=== PATIENT | male | born 1945 | race Caucasian/White ===

== ENCOUNTER 2021-09-17 08:24 | Emergency (ER) | payer MEDICARE, OTHER ==
[2021-09-17 09:24] LABS: #Basophils 0.1 thou/uL (0.0-0.2); #Eosinphils 0.1 thou/uL (0.0-0.7); #Lymphocytes 0.7 thou/uL (1.20-3.40); #Monocytes 1.4 thou/uL (0.11-0.59); #Neutrophils 7.7 thou/uL (1.40-6.50); %Basophils 1.1 % (0.0-1.0); %Lymphocytes 6.6 % (21.0-51.0); %Monocytes 13.7 % (0.0-10.0); %Neutrophils 77.6 % (42.0-75.0); Hemoglobin 11.9 g/dL (14.0-18.0); Mean Corpuscular HGB CONC 33.8 g/dL (32.0-36.0); Mean Corpuscular Hemoglobin 30.8 pg (27.0-31.0); Mean Corpuscular Volume 91.1 fL (78.0-98.0); Mean Platelet Volume 6.7 fL (7.4-10.4); Platelet Count 398 thou/uL (130-400); RBC Distribution Width 13.9 % (11.5-14.5); Red Blood Cell (RBC) Count 3.88 mill/uL (4.70-6.10)
[2021-09-17] MEDS ORDERED: Fentanyl 100 MCG/2 ML VIAL ONE (09:37)
[2021-09-17 09:43] LABS: ALT (SGPT) 10 U/L (8-55); AST (SGOT) 12 U/L (5-34); Albumin 3.2 g/dL (3.4-4.8); Alkaline Phosphatase 69 U/L (40-110); Anion Gap 15 mmol/L (10-20); BUN (Urea Nitrogen) 12 mg/dL (8.4-25.7); Bilirubin, Total 0.9 mg/dL (0.2-1.2); Calc. Creatinine Clearance 0 mL/min (70-130); Calcium 9.6 mg/dL (7.8-10.44); Carbon Dioxide 30 mmol/L (23-31); Chloride 90 mmol/L (98-107); Globulin 2.8 g/dL (2.4-3.5); Glucose 190 mg/dL (83-110); Sodium 130 mmol/L (136-145)
[2021-09-17 10:00] LABS: SARS-CoV-2 NAA Rapid Test Not Detected (NotDetected)
== END 2021-09-17 11:15 | disposition short-term general hospital (02) ==
LOC: BURERS 08:24
DX: S72.142A Displaced intertrochanteric fracture of left femur, initial encounter for closed fracture (principal); I25.2 Old myocardial infarction; I48.91 Unspecified atrial fibrillation; E11.9 Type 2 diabetes mellitus without complications; E78.5 Hyperlipidemia, unspecified; W18.30XA Fall on same level, unspecified, initial encounter; Z20.822 Contact with and (suspected) exposure to COVID-19
CPT/HCPCS: 72170; 80053; 85025; 96374; J3010; U0002

== ENCOUNTER 2021-10-31 11:44 | Outpatient (CLI) | payer MEDICARE | END 2021-10-31 11:45 | disposition home or self-care (01) | LOC: BURRAD 11:44 | PROVIDERS: ATTEND Registered Nurse Community Health | DX: R10.2 Pelvic and perineal pain (principal); Z91.81 History of falling | CPT/HCPCS: 72170 ==

== ENCOUNTER 2021-11-02 02:36 | Inpatient (IN) | payer MEDICARE ==
[2021-11-02] MEDS ORDERED: Dextrose 50% Abboject 50 ML SYRINGE ONE (03:12)
[2021-11-02 03:31] LABS: Hemoglobin 11.5 g/dL (14.0-18.0); Mean Corpuscular Hemoglobin 31.6 pg (27.0-31.0); Mean Corpuscular Volume 95.8 fL (78.0-98.0); Mean Platelet Volume 6.7 fL (7.4-10.4); Platelet Count 470 thou/uL (130-400); RBC Distribution Width 14.9 % (11.5-14.5); Red Blood Cell (RBC) Count 3.65 mill/uL (4.70-6.10); White Blood Cell (WBC) Count 17.4 thou/uL (4.8-10.8)
[2021-11-02 03:32] LABS: ALT (SGPT) 7 U/L (8-55); AST (SGOT) 10 U/L (5-34); Albumin 3.1 g/dL (3.4-4.8); Alkaline Phosphatase 74 U/L (40-110); Anion Gap 14 mmol/L (10-20); BUN (Urea Nitrogen) 12 mg/dL (8.4-25.7); Bilirubin, Total 0.5 mg/dL (0.2-1.2); Calc. Creatinine Clearance 0 mL/min (70-130); Calcium 9.3 mg/dL (7.8-10.44); Carbon Dioxide 34 mmol/L (23-31); Chloride 87 mmol/L (98-107); Globulin 2.7 g/dL (2.4-3.5); Potassium 4.7 mmol/L (3.5-5.1); Protein, Total 5.8 g/dL (5.8-8.1); Sodium 130 mmol/L (136-145)
[2021-11-02 03:58] LABS: Glucose 39 mg/dL (83-110)
[2021-11-02] MEDS ORDERED: Cefepime 2 GM VIAL ONE (08:28)
[2021-11-02 17:38] LABS: Bilirubin Negative (Negative); Blood, Urine Negative (Negative); Clarity Clear (Clear); Glucose, Urine (Dipstick) Negative (Negative); Ketone, Urine Negative (Negative); Leukocyte Negative (Negative); Nitrite Negative (Negative); Protein, Urine (Dipstick) Negative (Neg-Trace); Urobilinogen 0.2 mg/dL (Less than 2)
[2021-11-02] MEDS ORDERED: Milk Of Magnesia 30 ML UDCUP PO PRN (20:25)
[2021-11-02] MEDS ORDERED: GUAIFENESIN SF SOLN 200 MG/10 ML UDCUP PO PRN (20:25)
[2021-11-02] MEDS ORDERED: Acetaminophen 500 MG TAB PO PRN (20:25)
[2021-11-02] MEDS ORDERED: Benzonatate 100 MG CAP PO PRN (20:25)
[2021-11-02] MEDS ORDERED: traMADol HCl 50 MG TAB PO PRN (20:25)
[2021-11-02] MEDS ORDERED: Dextrose 50% Abboject 50 ML SYRINGE SLOW IVP PRN (20:29)
[2021-11-02] MEDS ORDERED: Dextrose 5% in Water 1,000 ML IV PRN (20:29)
[2021-11-02 20:52] LABS: SARS-CoV-2 PCR by NAA Not Detected (NotDetected)
[2021-11-02] MEDS: busPIRone HCl 5 MG TAB PO SCH (21:40)
[2021-11-02] MEDS: Propranolol HCl 20 MG TAB PO SCH (21:40)
[2021-11-02] MEDS: Magnesium Oxide 400 MG TAB PO SCH (21:40)
[2021-11-02] MEDS: Ezetimibe 10 MG TAB PO SCH (21:40)
[2021-11-02] MEDS: Senokot S 8.6-50 MG TAB PO SCH (21:40)
[2021-11-02] MEDS: ALPRAZolam 0.5 MG TAB PO SCH (21:41)
[2021-11-02] MEDS: Sotalol HCl 80 MG TAB PO SCH (21:43)
[2021-11-02] MEDS: Atorvastatin Calcium 10 MG TAB PO SCH (21:43)
[2021-11-02] MEDS: Apixaban 5 MG TAB PO SCH (21:45)
[2021-11-02] MEDS: Cefepime 1 GM in Sodium Chloride 0.9% 100 ML IVPB SCH (21:48)
[2021-11-02 22:17] VITALS: BMI 19.2
[2021-11-02] MEDS: Vancomycin HCl 1 GM in Sodium Chloride 0.9% 250 ML 250 ML IVPB SCH (23:06)
[2021-11-02] MEDS: CAPTOPRIL 50 MG TAB PO SCH (23:07)
[2021-11-02] MEDS: Amlodipine 5 MG TAB PO SCH ×2 (23:42→23:45)
[2021-11-03 06:15] LABS: ALT (SGPT) 8 U/L (8-55); AST (SGOT) 12 U/L (5-34); Albumin 2.9 g/dL (3.4-4.8); Alkaline Phosphatase 71 U/L (40-110); Anion Gap 11 mmol/L (10-20); BUN (Urea Nitrogen) 7 mg/dL (8.4-25.7); Bilirubin, Total 0.7 mg/dL (0.2-1.2); Calc. Creatinine Clearance 82 mL/min (70-130); Calcium 8.8 mg/dL (7.8-10.44); Carbon Dioxide 33 mmol/L (23-31); Chloride 89 mmol/L (98-107); Globulin 2.5 g/dL (2.4-3.5); Glucose 112 mg/dL (83-110); Potassium 4.6 mmol/L (3.5-5.1); Protein, Total 5.4 g/dL (5.8-8.1); Sodium 128 mmol/L (136-145)
[2021-11-03 06:23] LABS: Hemoglobin 11.7 g/dL (14.0-18.0); Mean Corpuscular HGB CONC 32.8 g/dL (32.0-36.0); Mean Corpuscular Hemoglobin 31.2 pg (27.0-31.0); Mean Corpuscular Volume 95.2 fL (78.0-98.0); Mean Platelet Volume 6.5 fL (7.4-10.4); Platelet Count 421 thou/uL (130-400); RBC Distribution Width 14.6 % (11.5-14.5); Red Blood Cell (RBC) Count 3.77 mill/uL (4.70-6.10); White Blood Cell (WBC) Count 8.5 thou/uL (4.8-10.8)
[2021-11-03] MEDS ORDERED: Mometasone 100 MCG/PUFF (1 INHALER) INH SCH (07:00)
[2021-11-03 07:20] LABS: Elliptocytes SLIGHT = 2-5 cells (100X) (0-1/hpf); Lymphocytes 6 % (21-51); MDiff Complete? YES; Monocytes 16 % (0-10); Neutrophil 78 % (42-75); Platelet Morphology Comment Appears Increased; Poikilocytosis SLIGHT = 6-15 cells (100X) (0-5/hpf); Schistocytes SLIGHT = 2-5 cells (100X) (0-1/hpf)
[2021-11-03] MEDS: ALPRAZolam 0.5 MG TAB PO SCH ×4 (08:33→20:21)
[2021-11-03] MEDS: Cefepime 1 GM in Sodium Chloride 0.9% 100 ML IVPB SCH ×2 (08:33→20:22)
[2021-11-03] MEDS: predniSONE 5 MG TAB PO SCH (08:34)
[2021-11-03] MEDS: Amlodipine 5 MG TAB PO SCH ×2 (08:34→20:19)
[2021-11-03] MEDS: Propranolol HCl 20 MG TAB PO SCH ×2 (08:34→20:18)
[2021-11-03] MEDS: Clopidogrel Bisulfate 75 MG TAB PO SCH (08:34)
[2021-11-03] MEDS: Apixaban 5 MG TAB PO SCH ×2 (08:34→20:20)
[2021-11-03] MEDS: Docusate 100 MG CAP PO SCH (08:34)
[2021-11-03] MEDS: Magnesium Oxide 400 MG TAB PO SCH ×2 (08:35→20:21)
[2021-11-03] MEDS: Senokot S 8.6-50 MG TAB PO SCH ×2 (08:35→20:19)
[2021-11-03] MEDS: Sotalol HCl 80 MG TAB PO SCH ×2 (08:35→20:20)
[2021-11-03] MEDS: busPIRone HCl 5 MG TAB PO SCH ×3 (08:35→20:18)
[2021-11-03] MEDS: Lantus 1000 UNITS/10 ML VIAL SC SCH (08:36)
[2021-11-03] MEDS: CAPTOPRIL 50 MG TAB PO SCH (08:37)
[2021-11-03] MEDS ORDERED: UMECLIDIN INH SCH (09:00)
[2021-11-03] MEDS ORDERED: VILANTER INH SCH (09:00)
[2021-11-03] MEDS ORDERED: Insulin Glargine 20 UNITS in Pre-Filled Syringe 1 EACH SC SCH (09:00)
[2021-11-03] MEDS ORDERED: FLUTICASONE INH SCH (09:00)
[2021-11-03] MEDS ORDERED: Lisinopril 5 MG TAB PO SCH (10:00)
[2021-11-03] MEDS: Vancomycin HCl 1 GM in Sodium Chloride 0.9% 250 ML 250 ML IVPB SCH ×2 (11:00→23:12)
[2021-11-03] MEDS: Lisinopril 5 MG TAB PO SCH (20:19)
[2021-11-03] MEDS: Ezetimibe 10 MG TAB PO SCH (20:20)
[2021-11-03] MEDS: Atorvastatin Calcium 10 MG TAB PO SCH (20:21)
[2021-11-03] MEDS: Mometasone 100 MCG/PUFF (1 INHALER) INH SCH (20:28)
[2021-11-03 21:53] LABS: Vancomycin, Trough 13.3 ug/mL
[2021-11-04 06:23] LABS: Hemoglobin 10.5 g/dL (14.0-18.0); Mean Corpuscular HGB CONC 33.2 g/dL (32.0-36.0); Mean Corpuscular Hemoglobin 31.7 pg (27.0-31.0); Mean Corpuscular Volume 95.5 fL (78.0-98.0); Mean Platelet Volume 6.8 fL (7.4-10.4); Platelet Count 397 thou/uL (130-400); RBC Distribution Width 14.9 % (11.5-14.5); Red Blood Cell (RBC) Count 3.31 mill/uL (4.70-6.10); White Blood Cell (WBC) Count 7.9 thou/uL (4.8-10.8)
[2021-11-04 06:32] LABS: ALT (SGPT) 8 U/L (8-55); AST (SGOT) 11 U/L (5-34); Albumin 2.7 g/dL (3.4-4.8); Alkaline Phosphatase 67 U/L (40-110); Anion Gap 11 mmol/L (10-20); BUN (Urea Nitrogen) 8 mg/dL (8.4-25.7); Bilirubin, Total 0.4 mg/dL (0.2-1.2); Calc. Creatinine Clearance 84 mL/min (70-130); Calcium 8.6 mg/dL (7.8-10.44); Carbon Dioxide 34 mmol/L (23-31); Chloride 91 mmol/L (98-107); Globulin 2.4 g/dL (2.4-3.5); Glucose 105 mg/dL (83-110); Potassium 4.5 mmol/L (3.5-5.1); Protein, Total 5.1 g/dL (5.8-8.1); Sodium 131 mmol/L (136-145)
[2021-11-04 07:01] LABS: Band 1 % (5-11); Lymphocytes 7 % (21-51); MDiff Complete? YES; Monocytes 22 % (0-10); Neutrophil 69 % (42-75)
[2021-11-04] MEDS: Propranolol HCl 20 MG TAB PO SCH ×2 (08:08→20:52)
[2021-11-04] MEDS: ALPRAZolam 0.5 MG TAB PO SCH ×4 (08:08→20:52)
[2021-11-04] MEDS: busPIRone HCl 5 MG TAB PO SCH ×3 (08:09→20:53)
[2021-11-04] MEDS: Lisinopril 5 MG TAB PO SCH ×2 (08:10→20:54)
[2021-11-04] MEDS: Sotalol HCl 80 MG TAB PO SCH ×2 (08:10→20:54)
[2021-11-04] MEDS: Clopidogrel Bisulfate 75 MG TAB PO SCH (08:10)
[2021-11-04] MEDS: Docusate 100 MG CAP PO SCH (08:10)
[2021-11-04] MEDS: predniSONE 5 MG TAB PO SCH (08:10)
[2021-11-04] MEDS: Apixaban 5 MG TAB PO SCH ×2 (08:10→20:54)
[2021-11-04] MEDS: Lantus 1000 UNITS/10 ML VIAL SC SCH (08:11)
[2021-11-04] MEDS: Amlodipine 5 MG TAB PO SCH ×2 (08:11→20:54)
[2021-11-04] MEDS: Senokot S 8.6-50 MG TAB PO SCH ×2 (08:11→20:52)
[2021-11-04] MEDS: Magnesium Oxide 400 MG TAB PO SCH ×2 (08:11→20:52)
[2021-11-04] MEDS: Cefepime 1 GM in Sodium Chloride 0.9% 100 ML IVPB SCH ×2 (08:15→20:50)
[2021-11-04] MEDS: Mometasone 100 MCG/PUFF (1 INHALER) INH SCH ×2 (08:29→22:06)
[2021-11-04] MEDS: Vancomycin HCl 1 GM in Sodium Chloride 0.9% 250 ML 250 ML IVPB SCH ×2 (11:22→22:06)
[2021-11-04] MEDS: Ezetimibe 10 MG TAB PO SCH (20:53)
[2021-11-04] MEDS: Atorvastatin Calcium 10 MG TAB PO SCH (20:53)
[2021-11-05] MEDS: Lantus 1000 UNITS/10 ML VIAL SC SCH (08:21)
[2021-11-05] MEDS: busPIRone HCl 5 MG TAB PO SCH ×3 (08:22→20:19)
[2021-11-05] MEDS: predniSONE 5 MG TAB PO SCH (08:23)
[2021-11-05] MEDS: Amlodipine 5 MG TAB PO SCH ×2 (08:24→20:20)
[2021-11-05] MEDS: Apixaban 5 MG TAB PO SCH ×2 (08:24→20:20)
[2021-11-05] MEDS: Docusate 100 MG CAP PO SCH (08:24)
[2021-11-05] MEDS: Senokot S 8.6-50 MG TAB PO SCH ×2 (08:24→20:19)
[2021-11-05] MEDS: Propranolol HCl 20 MG TAB PO SCH ×2 (08:24→20:19)
[2021-11-05] MEDS: Magnesium Oxide 400 MG TAB PO SCH ×2 (08:25→20:19)
[2021-11-05] MEDS: Sotalol HCl 80 MG TAB PO SCH ×2 (08:25→20:21)
[2021-11-05] MEDS: ALPRAZolam 0.5 MG TAB PO SCH ×4 (08:25→20:18)
[2021-11-05] MEDS: Lisinopril 5 MG TAB PO SCH ×2 (08:26→20:20)
[2021-11-05] MEDS: Cefepime 1 GM in Sodium Chloride 0.9% 100 ML IVPB SCH ×2 (08:29→20:17)
[2021-11-05] MEDS: Clopidogrel Bisulfate 75 MG TAB PO SCH (08:30)
[2021-11-05 09:13] LABS: Vancomycin, Trough 17.1 ug/mL
[2021-11-05] MEDS: Vancomycin HCl 1 GM in Sodium Chloride 0.9% 250 ML 250 ML IVPB SCH ×2 (10:30→21:11)
[2021-11-05] MEDS: Mometasone 100 MCG/PUFF (1 INHALER) INH SCH ×2 (10:31→20:21)
[2021-11-05] MEDS: Ezetimibe 10 MG TAB PO SCH (20:19)
[2021-11-05] MEDS: Atorvastatin Calcium 10 MG TAB PO SCH (20:19)
[2021-11-06 05:35] LABS: Hemoglobin 10.6 g/dL (14.0-18.0); Platelet Count 410 thou/uL (130-400)
[2021-11-06 05:37] LABS: Calc. Creatinine Clearance 85 mL/min (70-130)
[2021-11-06] MEDS: Mometasone 100 MCG/PUFF (1 INHALER) INH SCH (09:43)
[2021-11-06] MEDS: Amlodipine 5 MG TAB PO SCH (09:44)
[2021-11-06] MEDS: Magnesium Oxide 400 MG TAB PO SCH (09:44)
[2021-11-06] MEDS: Senokot S 8.6-50 MG TAB PO SCH (09:44)
[2021-11-06] MEDS: Clopidogrel Bisulfate 75 MG TAB PO SCH (09:44)
[2021-11-06] MEDS: Propranolol HCl 20 MG TAB PO SCH (09:44)
[2021-11-06] MEDS: busPIRone HCl 5 MG TAB PO SCH ×2 (09:44→15:09)
[2021-11-06] MEDS: Sotalol HCl 80 MG TAB PO SCH (09:45)
[2021-11-06] MEDS: Docusate 100 MG CAP PO SCH (09:45)
[2021-11-06] MEDS: Lisinopril 5 MG TAB PO SCH (09:45)
[2021-11-06] MEDS: Apixaban 5 MG TAB PO SCH (09:46)
[2021-11-06] MEDS: ALPRAZolam 0.5 MG TAB PO SCH ×2 (09:47→13:01)
[2021-11-06] MEDS: predniSONE 5 MG TAB PO SCH (09:48)
[2021-11-06] MEDS: Cefepime 1 GM in Sodium Chloride 0.9% 100 ML IVPB SCH (09:53)
[2021-11-06] MEDS: Lantus 1000 UNITS/10 ML VIAL SC SCH (09:54)
[2021-11-06] MEDS: Vancomycin HCl 1 GM in Sodium Chloride 0.9% 250 ML 250 ML IVPB SCH (11:04)
[2021-11-06 16:51] VITALS: BP 123/62; TEMP 98.2
== END 2021-11-06 16:36 | DRG 178 ==
LOC: BURERS 02:36 → BURMED 19:48
PROVIDERS: ADMIT Family Medicine; ATTEND Family Medicine
DX: J69.0 Pneumonitis due to inhalation of food and vomit (principal); E22.2 Syndrome of inappropriate secretion of antidiuretic hormone; I50.32 Chronic diastolic (congestive) heart failure; Z66 Do not resuscitate; I48.20 Chronic atrial fibrillation, unspecified; G20 Parkinson's disease; I11.0 Hypertensive heart disease with heart failure; J44.9 Chronic obstructive pulmonary disease, unspecified; E11.9 Type 2 diabetes mellitus without complications; Z20.822 Contact with and (suspected) exposure to COVID-19; Z96.641 Presence of right artificial hip joint; E78.5 Hyperlipidemia, unspecified; R13.12 Dysphagia, oropharyngeal phase; M45.9 Ankylosing spondylitis of unspecified sites in spine; Z99.81 Dependence on supplemental oxygen; Z88.0 Allergy status to penicillin; Z87.891 Personal history of nicotine dependence; Z79.4 Long term (current) use of insulin; Z79.02 Long term (current) use of antithrombotics/antiplatelets; Z79.01 Long term (current) use of anticoagulants; Z79.899 Other long term (current) drug therapy
CPT/HCPCS: 36415; 36416; 71045; 80053; 80202; 81003; 82565; 83605; 84484; 85014; 85018; 85025; 85049; 87040; 93005; 94640; J0692; J1815; J3370; J3490; J7050; J7512; J7620; U0003; U0005

== ENCOUNTER 2021-12-10 14:08 | Outpatient (CLI) | payer MEDICARE | END 2021-12-10 14:09 | disposition home or self-care (01) | LOC: BURRAD 14:08 | PROVIDERS: ATTEND Family Medicine | DX: R06.2 Wheezing (principal); J18.9 Pneumonia, unspecified organism; J90 Pleural effusion, not elsewhere classified; R91.8 Other nonspecific abnormal finding of lung field | CPT/HCPCS: 71046 ==

== ENCOUNTER 2021-12-14 18:11 | Emergency (ER) | payer MEDICARE ==
[2021-12-14 18:55] LABS: Hemoglobin 11.7 g/dL (14.0-18.0); Mean Corpuscular HGB CONC 33.2 g/dL (32.0-36.0); Mean Corpuscular Volume 96.6 fL (78.0-98.0); Mean Platelet Volume 6.6 fL (7.4-10.4); Platelet Count 401 thou/uL (130-400); RBC Distribution Width 13.6 % (11.5-14.5); Red Blood Cell (RBC) Count 3.67 mill/uL (4.70-6.10); White Blood Cell (WBC) Count 12.6 thou/uL (4.8-10.8)
[2021-12-14 19:09] LABS: ALT (SGPT) 13 U/L (8-55); AST (SGOT) 13 U/L (5-34); Albumin 2.9 g/dL (3.4-4.8); Alkaline Phosphatase 67 U/L (40-110); Anion Gap 13 mmol/L (10-20); BUN (Urea Nitrogen) 21 mg/dL (8.4-25.7); Bilirubin, Total 0.3 mg/dL (0.2-1.2); Calc. Creatinine Clearance 0 mL/min (70-130); Calcium 8.7 mg/dL (7.8-10.44); Carbon Dioxide 34 mmol/L (23-31); Chloride 91 mmol/L (98-107); Globulin 2.8 g/dL (2.4-3.5); Glucose 143 mg/dL (83-110); Potassium 4.1 mmol/L (3.5-5.1); Protein, Total 5.7 g/dL (5.8-8.1); Sodium 134 mmol/L (136-145)
[2021-12-14 19:13] LABS: Lymphocytes 2 % (21-51); MDiff Complete? YES; Monocytes 20 % (0-10); Neutrophil 78 % (42-75)
[2021-12-14] MEDS ORDERED: Cefepime 2 GM VIAL ONE (20:51)
[2021-12-14] MEDS ORDERED: Sodium Chloride 0.9% 100 ML ONE (20:51)
[2021-12-14 23:17] LABS: SARS-CoV-2 NAA Rapid Test Not Detected (NotDetected)
== END 2021-12-14 22:11 | disposition short-term general hospital (02) ==
LOC: BURERS 18:11
DX: J18.9 Pneumonia, unspecified organism (principal); I25.2 Old myocardial infarction; I50.9 Heart failure, unspecified; I48.91 Unspecified atrial fibrillation; E78.5 Hyperlipidemia, unspecified; E78.00 Pure hypercholesterolemia, unspecified; J44.9 Chronic obstructive pulmonary disease, unspecified; E11.9 Type 2 diabetes mellitus without complications; Z20.822 Contact with and (suspected) exposure to COVID-19; Z87.891 Personal history of nicotine dependence; Z79.899 Other long term (current) drug therapy; Z79.4 Long term (current) use of insulin; Z79.01 Long term (current) use of anticoagulants
CPT/HCPCS: 36415; 71045; 80053; 83605; 83880; 84484; 85025; 87040; 93005; 96365; 96367; J0692; J3370; J3490; U0002